=== PATIENT | female | born 1990 | race Caucasian/White ===

== ENCOUNTER 2017-02-19 20:55 | Emergency (ER) | payer OTHER ==
[2017-02-19 21:01] VITALS: BMI 28.3
[2017-02-19] MEDS ORDERED: ACETAMINOPHEN 325 MG TABLET (FP) PO ONE (22:11)
[2017-02-19] MEDS ORDERED: diphenhydrAMINE HCL 25 MG CAPSULE (FP) PO ONE ×2 (22:11→22:28)
--- NOTE | 2017-02-19 22:23 | PDOC ---
History of Present Illness - General Chief Complaint: Headache Stated Complaint: 13 WKS PREG, HEADACHES Time Seen by Provider: 02/19/17 21:59 History Source: Patient - History of Present Illness Initial Comments: 02/19/17 22:13 26 year old female with frontal headaches and facial pain x 2 weeks. no nasal drainage, fever reported. patient is 13 weeks . denies photophobia, vission changes. denies pmhx denies tylenol taking > 24 hours 02/19/17 22:31 02/19/17 22:31 Past History - Travel Traveled outside of the country in the last 30 days: No Close contact w/someone who was outside of country & ill: No - Past Medical History Allergies/Adverse Reactions: Allergies Allergy/AdvReac Type Severity Reaction Status Date / Time No Known Allergies Allergy Verified 02/19/17 22:46 Home Medications: Ambulatory Orders NK [No Known Home Medication] 01/29/16 - Surgical History Abdominal Surgery: Yes (GASTRIC SLEEVE) - Psycho/Social/Smoking Cessation Hx Anxiety: No Suicidal Ideation: No Smoking History: Never smoked Have you smoked in the past 12 months: No Information on smoking cessation initiated: No Hx Alcohol Use: No Drug/Substance Use Hx: No Substance Use Type: None Review of Systems - Review of Systems Able to Perform ROS?: Yes Is the patient limited [place]ian proficient: No Constitutional: No: Symptoms Reported, See HPI, Chills, Diaphoresis, Fever, Loss of Appetite, Malaise, Night Sweats, Weakness, Weight Stable, Unintentional Wgt. Loss, Unexplained wgt Loss, Other HEENTM: Yes: Nose Congestion, Other (facial pain ) Neurological: Yes: Headache *Physical Exam - Vital Signs Last Vital Signs Temp Pulse Resp BP Pulse Ox 97.7 F 91 H 18 120/67 98 02/19/17 20:59 02/19/17 20:59 02/19/17 20:59 02/19/17 20:59 02/19/17 20:59 - Physical Exam General Appearance: Yes: Appropriately Dressed HEENT: positive: Other (frontal and maxillary sinus tenderness) Respiratory/Chest: positive: Lungs Clear, Normal Breath Sounds Cardiovascular: positive: Regular Rhythm, Regular Rate Gastrointestinal/Abdominal: positive: Normal Bowel Sounds, Soft Extremity: positive: Normal Capillary Refill, Normal Inspection, Normal Range of Motion Integumentary: positive: Normal Color, Dry, Warm Neurologic: positive: Fully Oriented, Alert, Normal Mood/Affect Progress Note - Progress Note Progress Note: A: sinus headache. P: benadryl and tylenol/ *DC/Admit/Observation/Transfer Diagnosis at time of Disposition: Sinus headache - Discharge Dispostion Disposition: HOME - Patient Instructions Printed Discharge Instructions: Sinus Headache Additional Instructions: take tylenol every 4-6 hours as needed for pain. take benadryl 25mg every 8 hours as needed . apply warm compress to face as tolerated. consider "Nellimed" sinus flushes OTC as per direction. follow up with your doctor as soon as possible.
[2017-02-19] MEDS ORDERED: ACETAMINOPHEN 325 MG TABLET (FP) ONE (22:28)
[2017-02-19 23:09] VITALS: BP 120/70; PULSE 82; TEMP 98
== END 2017-02-19 23:09 | disposition home or self-care (01) ==
LOC: JER 20:55
DX: O99.89 Other specified diseases and conditions complicating pregnancy, childbirth and the puerperium (principal); J01.10 Acute frontal sinusitis, unspecified; J01.00 Acute maxillary sinusitis, unspecified; Z3A.11 11 weeks gestation of pregnancy
CPT/HCPCS: 99282-25

== ENCOUNTER 2017-05-23 01:14 | Emergency (ER) | payer OTHER ==
[2017-05-23 01:29] VITALS: BP 111/50; PULSE 77; TEMP 98.3; BMI 29.2
== END 2017-05-23 02:38 | disposition left against medical advice (07) ==
LOC: JER 01:14
DX: Z53.21 Procedure and treatment not carried out due to patient leaving prior to being seen by health care provider (principal)
CPT/HCPCS: 99281-25